=== PATIENT | female | born 1955 | race Caucasian/White ===

== ENCOUNTER → 2017-10-15 | Outpatient (CLI) | payer OTHER | LOC: FIMAGING 09:07 | PROVIDERS: ATTEND Physician Assistant | DX: Z12.31 Encounter for screening mammogram for malignant neoplasm of breast (principal) ==

== ENCOUNTER → 2017-11-04 | Outpatient (CLI) | payer OTHER | LOC: FIMAGING 15:51 | PROVIDERS: ATTEND Physician Assistant | DX: R93.8 Abnormal findings on diagnostic imaging of other specified body structures (principal); N88.8 Other specified noninflammatory disorders of cervix uteri ==

== ENCOUNTER → 2018-02-17 | Outpatient (CLI) | payer OTHER | LOC: FIMAGING 09:05 | PROVIDERS: ATTEND Physician Assistant | DX: R68.89 Other general symptoms and signs (principal) ==

== ENCOUNTER 2018-05-25 05:58 | Day surgery (SDC) | payer OTHER ==
[2018-05-25] MEDS ORDERED: LIDOCAINE 1% 2 ML INJ ID PRN (06:14)
--- NOTE | 2018-05-25 06:33 | PDGENHP ---
History and Physical - Chief Complaint Thickened endometrium - History of Present Illness Jessie is here for preop visit today. [facility] with endo sampling scheduled for . She was referred to me by her PCP regarding abnormal pelvic US with thickened cyst endometrial stripe at 5mm. She had not (and still hasn't) had any post-menopausal bleeding, but has been having new sx of lower abdominal cramping/bloating which prompted the US. She was not able to tolerate an endometrial biopsy in the office with her prior providers, despite sedation meds. She declines to attempt that again the office - recommended direct visualization and biopsy. Not on HRT. She did have a HSC in 2001 due to perimenopausal DUB which was benign. She's concerned due to family h/o CA (mom lymphoma, Dad colon). History Information - Allergies/Home Medication List Allergies/Adverse Reactions: amoxicillin [Amoxicillin] Allergy (Verified 05/22/18 16:05) Rash Home Medications: Advair 100/50 (RX) 09/18/13 [Last Taken Unknown] Ambien 5MG (RX) 09/18/13 [Last Taken Unknown] Proventil 09/18/13 [Last Taken Unknown] Temazepam 05/22/18 [Last Taken Unknown] traZODone 05/22/18 [Last Taken Unknown] I have personally reviewed and updated: family history, medical history, social history, surgical history Past Medical History: Asthma, anxiety, insomnia, HTN, mild urinary incontinence , migraines - Surgical History Additional surgical history: HSC 2001, Left thumb 2009 - Family History Additional family history: mom non-hodgkins lymphoma, dad colorectal Ca - Social History Smoking Status: Former smoker Review of Systems Review of Systems: ROS: 10pt was reviewed & negative except for what was stated in HPI & below Physical Exam Physical Exam: Constitutional: no apparent distress, appears nourished, not in pain Eyes: PERRL, anicteric sclera Ears, Nose, Mouth, Throat: moist mucous membranes Cardiovascular: No edema Respiratory: No respiratory distress Psychiatric: interacting appropriately, not anxious Lab Data & Imaging Review Imaging Review: Most recent pelvic US in our clinic: 05/01/18 Uterus is herogenous. Anterior small cervical fibroid seen 5 x 5mm. Nabothian cyst seen. Endometrial stripe is 5.4mm with tiny cystic areas. There is trace FF within the endometrial canal. Ovaries WNL. Assessment & Plan Assessment: Preop: Diagnostic hysteroscopy, endometrial sampling - Routine preop orders. - No need for abx or any preop medications. - Home from PACU. ANTONIA
[2018-05-25] MEDS: LR 1,000 ML IV ONE ×2 (06:36→08:26)
[2018-05-25] MEDS ORDERED: MIDAZOLAM 2 MG/2 ML VIAL IVP ONE (06:51)
--- NOTE | 2018-05-25 07:06 | PDANEPAE ---
ANE Past Medical History - Cardiovascular History Hx Hypertension: No Hx Arrhythmias: No Hx Chest Pain: No Hx Coronary Artery / Peripheral Vascular Disease: No Hx CHF / Valvular Disease: No Hx Palpitations: No Cardiovascular History Comment: anxiety causes HTN - Pulmonary History Hx COPD: No Hx Asthma/Reactive Airway Disease: Yes Hx Recent Upper Respiratory Infection: No Hx Oxygen in Use at Home: No Hx Sleep Apnea: No Sleep Apnea Screening Result - Last Documented: Negative Pulmonary History Comment: enviromental contaminent. allergies trigger asthma - Neurologic History Hx Cerebrovascular Accident: No Hx Seizures: No Hx Dementia: No - Endocrine History Hx Diabetes: No - Renal History Hx Renal Disorders: No - Liver History Hx Hepatic Disorders: No - Neurological & Psychiatric Hx Hx Neurological and Psychiatric Disorders: Yes Neurological / Psychiatric History Comment: raynauds, lumbar issues cause n/t. 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 endometriosis - Chronic Pain History Chronic Pain: No - Surgical History Prior Surgeries: none ANE Review of Systems Review of Systems: - Exercise capacity METS (RN): 4 METS ANE Patient History - Allergies Allergies/Adverse Reactions: amoxicillin [Amoxicillin] Allergy (Verified 05/22/18 16:05) Rash - Home Medications Home Medications: Advair 100/50 (RX) 09/18/13 [Last Taken Unknown] Ambien 5MG (RX) 09/18/13 [Last Taken Unknown] Proventil 09/18/13 [Last Taken Unknown] Temazepam 05/22/18 [Last Taken Unknown] traZODone 05/22/18 [Last Taken Unknown] - NPO status NPO Since - Liquids (Date): 05/24/18 NPO Since - Liquids (Time): 23:45 NPO Since - Solids (Date): 05/24/18 NPO Since - Solids (Time): 23:45 - Smoking Hx Smoking Status: Former smoker - Family Anes Hx Family Hx Anesthesia Complications: mother nausea ANE Labs/Vital Signs - Vital Signs Height: 165.1 cm Weight: 95.254 kg ANE Physical Exam - Airway Neck exam: FROM Mallampati Score: Class 2 Mouth exam: normal dental/mouth exam - Pulmonary Pulmonary: clear to auscultation - Cardiovascular Cardiovascular: regular rate and rhythym - ASA Status ASA Status: II ANE Anesthesia Plan Anesthesia Plan: GA w LMA
[2018-05-25] MEDS ORDERED: PROPOFOL 200 MG/20 ML VIAL ONE (07:09)
[2018-05-25] MEDS ORDERED: fentaNYL 100 MCG/2 ML INJ ONE (07:09)
[2018-05-25] MEDS ORDERED: LIDOCAINE 2% 100 MG/5 ML SYR ONE (07:11)
[2018-05-25] MEDS ORDERED: DEXAMETHASONE 4 MG/ML VIAL ONE (07:16)
[2018-05-25] MEDS ORDERED: METOCLOPRAMIDE 10 MG/2 ML VIAL ONE (07:17)
[2018-05-25] MEDS ORDERED: ONDANSETRON 4 MG/2 ML VIAL ONE (07:17)
[2018-05-25] MEDS ORDERED: BUPIVACAINE 0.25% 30 ML SDV ONE (07:24)
[2018-05-25] MEDS ORDERED: EPINEPHrine 1 MG/ML INJ ONE (07:24)
[2018-05-25] MEDS ORDERED: KETOROLAC 30 MG/1 ML SDV ONE (07:35)
[2018-05-25] MEDS ORDERED: LR 500 ML IV PRN (07:46)
[2018-05-25] MEDS ORDERED: ONDANSETRON 4 MG/2 ML VIAL IVP PRN (07:46)
[2018-05-25] MEDS ORDERED: fentaNYL 100 MCG/2 ML INJ IVP PRN (07:46)
[2018-05-25] MEDS ORDERED: NALOXONE HCL 0.4 MG/ML INJ IVP PRN (07:46)
[2018-05-25] MEDS ORDERED: DIAZEPAM 5 MG/ML 1 ML SYR IVP PRN (07:46)
[2018-05-25] MEDS ORDERED: LABETALOL HCL 5 MG/ML 20 ML MDV IVP PRN (07:46)
[2018-05-25] MEDS ORDERED: HYDROmorphONE/DILAUDID 2 MG/ML INJ IVP PRN (07:46)
[2018-05-25] MEDS ORDERED: PROMETHAZINE HCL 25 MG/ML INJ IVP PRN (07:46)
[2018-05-25] MEDS ORDERED: ALBUTEROL 3 ML DEYVIAL IH PRN (07:46)
[2018-05-25] MEDS ORDERED: HYDROCODONE/APAP 5/325 TAB PO PRN (07:46)
[2018-05-25] MEDS ORDERED: MEPERIDINE 25 MG/0.5 ML AMP IVP PRN (07:46)
[2018-05-25] MEDS ORDERED: oxyCODONE IR 5 MG TAB PO PRN (07:46)
--- NOTE | 2018-05-25 08:38 | SUROPNOTE ---
LALITH[facility] Operative Report - Surgery Date of Operation: 05/25/18 Surgeon: Rayo Nunes Safety Counselor: None Anesthesia: GET(General Endotracheal), LMA Pre-op Diagnosis: Thickened endometrial lining Post-op Diagnosis: Same, intrauterine adhesions Procedure: Diagnostic hysteroscopy Findings: Stenotic cervix, scarred irregular cavity Inf/Abcess present in the surg proc area at time of surgery?: No EBL: Minimal (10cc) Total fluids administered: Deficit 1210 Complications: None Specimen(s): Endometrial sampling Technique:
[2018-05-25 09:20] VITALS: BP 116/68
--- NOTE | 2018-05-25 11:55 | POSTANESTH ---
Post Anesthetic Evaluation Cardiovascular Status: Normal, Stable Respiratory Status: Normal, Stable Level of Consciousness/Mental Status: Can Participate in Eval Pain Control: Adequate, Prn Tx Ordered Nausea/Vomiting Control: Adequate, Prn Tx Ordered Complications Possibly Related to Anesthesia: None Noted
== END 2018-05-25 09:42 | disposition home or self-care (01) ==
LOC: FSGY 05:58
PROVIDERS: ATTEND Obstetrics & Gynecology
PROC: 0UDB8ZX Extraction of Endometrium, Via Natural or Artificial Opening Endoscopic, Diagnostic (ICD-10-PCS; principal; 2018-05-25 07:15)
DX: N84.0 Polyp of corpus uteri (principal); F41.8 Other specified anxiety disorders; J45.909 Unspecified asthma, uncomplicated; I10 Essential (primary) hypertension
CPT/HCPCS: 58558; C1782; J0171; J1100; J1885; J2001; J2250; J2405; J2704; J2765; J3010

== ENCOUNTER 2018-09-30 05:28 | Observation (INO) | payer OTHER ==
--- NOTE | 2018-09-28 07:53 | PDGENHP ---
History and Physical History and Physical: Lisbeth Addison [id number] 1955 09/23/2018 09:49 AM Page: 05/12 . ... Patient: Lisbeth Addison Date of : 1955 Date: 09/23/2018 9:49 AM Visit Type: Pre Op Visit This 63 year old female presents for Pre-Op. History of Present Illness: 1. Pre-Op Patient presents to clinic today for a preoperative visit for Right Total Hip Arthroplasty scheduled on 09/30/[address] Mariscal. Patient has had significant history of pain and discomfort related to osteoarthritis (degenerative joint disease) and has failed conservative management in the form of over the counter analgesics (such as NSAIDs and Tylenol), at least 3 months of modified activity/ therapy and exercises (such as physical therapy, and PT created home exercises) , and supplements (such as glucosamine and chondroitin). This arthritic pain has affected patient's activities of daily living, and has affected sleep, walking/weight bearing, and other desired activities/hobbies. Patient has also had intermittent episodes of swelling and instability due to the pain, which pain has become constantly dull/achy, with intermittent sharp painful episodes. Pain and discomfort have caused patient to occasionally use ambulatory stabilizing devices (such as crutches, cane, walker, or braces). Patient has also been trying healthy diet in order to optimize weight. Pain levels vary depending on activity from 1-10 out of 10 on a pain scale. This pain/discomfort has been occurring for well over 1 year, and conservative management has no longer given sufficient relief of symptoms. Radiographs previously taken of joint clearly confirm the presence of degenerative joint disease (such as joint space narrowing, subchondral sclerosis, and peripheral osteophyte formation). Patient feels they have exhausted non-surgical treatment for their pain and discomfort, and has decided a more permanent surgical option would be best for their current situation. Patient has been informed of the possible risks and complications of the procedure, and desires to continue with the surgery. Patient has/will participate in some form of joint instruction prior to surgery in order to help optimize their recovery. Patient will be cared for by family/friends after discharged home. ALLERGIES: AMOXICILLIN. CURRENT MEDICATIONS: Albuterol, Advair, trazodone, temazepam, Ambien, aspirin, fish oil. PAST MEDICAL HISTORY: History of lumbar disk pathology from L4 through sacrum ( degenerative disk disease). PREVIOUS SURGERY: Hysteroscopy with polyp removal, left thumb surgery. SOCIAL HISTORY: Nonsmoker currently. History of being a previous smoker and quit many years ago. Alcohol use is 10 drinks per week. No use of recreational drugs. PROBLEM LIST: Problem Description Onset Date Chronic Clinical Status Notes Lumbar radiculitis 06/05/2015 Bilateral leg weakness 06/05/2015 Medications (active prior to today) Medication Name Sig Description Start Date Stop Date Refilled Rx Elsewhere Advair Diskus inhale 1 puff by inhalation route 2 times every day in the morning and evening approximately 12 hours apart // Y Proventil HFA inhale 2 puff by inhalation route every 4 - 6 hours as needed // Y Singulair // Y Clarinex take 10 milliliter by oral route every day // Y simvastatin take 1 tablet by oral route every day in the evening // Y trazodone 50 mg tablet take 2 by Oral route every evening // Y temazepam 7.5 mg capsule take 1 capsule by oral route every day at bedtime as needed // Y Allergies: Ingredient Reaction Medication Name Intolerance Comment ARTICHOKE N AMOXICILLIN Rash (mild) N ERYTHROMYCIN BASE N SULFA (SULFONAMIDE ANTIBIOTICS) N Review of Systems System Neg/Pos Details Constitutional Negative Fatigue, Fever and Night sweats. Eyes Negative Vision loss. Respiratory Negative Cough and Dyspnea. Cardio Negative Chest pain, Cyanosis and Irregular heartbeat/palpitations. Neuro Negative Difficulty walking, Dizziness and Headache. Psych Negative Anxiety and Depression. Physical Exam Exam Findings Details Constitutional Normal No acute distress. Well developed. Respiratory Normal Inspection - Normal. Auscultation - Normal. Effort - Normal. Cardiovascular Normal Heart rate - Regular rate. Rhythm - Regular. Vascular Comments Distal vasculature of extremity is intact Musculoskeletal Comments Extremity: Right Hip Discomfort to ROM. No open wounds or signs of infection Neurological Comments sensation to light touch intact Psychiatric Normal Orientation - Oriented to time, place, person & situation. No agitation. Not anxious. Appropriate mood and affect. Assessment/Plan # Detail Type Description 1. Assessment Encounter for other preprocedural examination (Z01.818). Patient Plan The patient and I had a lengthy and detailed discussion today regarding their upcoming surgery, the surgical procedure in general, and the risks and potential complications of the surgery (including but not limited to blood loss, blood vessel injury, nerve injury, implant failure, continued pain, DVT/PE, infection, and ). We also discussed the post-operative recovery period including goals for PT and importance of home exercise. After reviewing patient's medical history, and answering all patient's concerns and questions, we will plan to proceed forward with surgery. Post-op physical therapy has been discussed and ordered, and the general rehabilitation process was discussed in detail with the patient. X-rays needed during surgery have been completed, and pre-op labs will be complete for pre-surgical screening, which will be reviewed prior to hospital admission. Post-operative medications for DVT prophylaxis, pain, and possible anti- inflammation have been discussed with patient and will be properly ordered. Patient instructed to take these medication only after discharged home after surgery. Patient instructed that Narcotic pain medication will be prescribed for use after surgery. I explained to patient we will only temporarily manage post- operative pain with narcotic pain medications and that there are side effects and addictive potential with use of such drugs. Constipation prevention and management was described in detail with patient. Patient instructed to stop all aspirin/blood thinners, NSAIDS, and certain supplements 10 days before surgery. Patient instructed to obtain a walker for ambulation, which will be needed for about 2 weeks following surgery. I described post-operative wound care in detail, including the Bandages/ dressing which will be applied after surgery, and removed when deemed necessary. I discussed with the patient the implant device we plan to use, including material, design, and known longevity of such an implant. Models were used for visual understanding as well. Patient education material and handouts were given to patient to help solidify proper understanding of their upcoming surgery and recovery. Consent for surgery has been reviewed and signed by patient, and patient understands the potential risks and benefits of procedure. A pre-op functional assessment was completed by patient today. Patient functional assessment will be assessed in future follow-up appointments as well. The patient's questions/concerns have all been answered at this appointment. Patient seen by Damion Rodrigues PA-C. Attending Physician Dr. Sina Mariscal MD 2. Assessment Unilateral primary osteoarthritis, right hip (M16.11). Provider: Damion Rodrigues 09/23/2018 9:50 AM
[2018-09-30] MEDS ORDERED: ACETAMINOPHEN 325 MG TAB PO ONE (05:47)
[2018-09-30] MEDS ORDERED: FAMOTIDINE 20 MG TAB PO ONE (05:47)
[2018-09-30] MEDS ORDERED: ceFAZolin 2 GM/DEXTROSE 100 ML IV ONE (05:47)
[2018-09-30] MEDS ORDERED: DEXAMETHASONE 4 MG/ML VIAL IVP ONE (05:47)
[2018-09-30] MEDS ORDERED: LIDOCAINE 1% 2 ML INJ ID PRN (05:48)
[2018-09-30] MEDS ORDERED: LR 1,000 ML IV ONE (05:48)
[2018-09-30] MEDS ORDERED: ROPIVACAINE 0.2% 80 MG, EPINEPHrine 0.2 MG, KETOROLAC TROMETHAMINE 30 MG, morphINE 10 M... IU ONE (06:00)
[2018-09-30] MEDS ORDERED: TRANEXAMIC ACID 1,000 MG in NS 100 ML IV ONE (06:00)
--- NOTE | 2018-09-30 06:52 | PDANEPAE ---
ANE Past Medical History - Cardiovascular History Hx Hypertension: No Hx Arrhythmias: No Hx Chest Pain: No Hx Coronary Artery / Peripheral Vascular Disease: No Hx CHF / Valvular Disease: No Hx Palpitations: No Cardiovascular History Comment: anxiety causes HTN - Pulmonary History Hx COPD: No Hx Asthma/Reactive Airway Disease: Yes Hx Recent Upper Respiratory Infection: No Hx Oxygen in Use at Home: No Hx Sleep Apnea: No Sleep Apnea Screening Result - Last Documented: Positive Pulmonary History Comment: enviromental contaminent. allergies trigger asthma - Neurologic History Hx Cerebrovascular Accident: No Hx Seizures: No Hx Dementia: No - Endocrine History Hx Diabetes: No - Renal History Hx Renal Disorders: No - Liver History Hx Hepatic Disorders: No - Neurological & Psychiatric Hx Hx Neurological and Psychiatric Disorders: Yes Neurological / Psychiatric History Comment: lumbar issues cause n/t. 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 endometriosis - Chronic Pain History Chronic Pain: Yes - Surgical History Prior Surgeries: none ANE Review of Systems Review of Systems: - Exercise capacity METS (RN): 5 METS ANE Patient History - Allergies Allergies/Adverse Reactions: amoxicillin [Amoxicillin] Allergy (Verified 09/28/18 11:45) Rash on legs epinephrine Allergy (Verified 09/30/18 06:03) gets dysrhythmia but ok if needed - Home Medications Home Medications: Albuterol Sulfate [Proair Hfa] 1 - 2 puffs IH TID PRN 09/17/18 [Last Taken 09/30 04:00] Aspirin [Aspirin 325 mg (*)] 325 mg PO Q2D@0900 09/17/18 [Last Taken 09/22/18] Calcium Carbonate [Tums 500MG (*)] 500 - 1,000 mg PO BID PRN 09/17/18 [Last Taken 09/22/18] Fluticasone Nasal [Flonase Nasal [place] (RX)] 1 - 2 sprays NASAL HS 09/17/18 [ Last Taken 09/30/18] Fluticasone/Salmeter 100/50Mcg [Advair 100/50 (*)] 1 puffs IH BID 09/17/18 [ Last Taken 09/30/18] Fluticasone/Salmeter 250/50Mcg [Advair 250/50 (*)] 1 puffs IH BID PRN 09/17/18 [ Last Taken 09/30/18] Herbals/Supplements -Info Only 1 ea PO DAILY 09/17/18 [Last Taken 09/22/18] Multivitamins [Multivitamin (*)] 1 each PO MWF@0900 09/17/18 [Last Taken ] Edison-3 Fatty Acids [Fish Oil 1000 mg (*)] 1,000 mg PO Q2D@0900 09/17/18 [Last Taken 09/22/18] Temazepam [Restoril 15 MG (*)] 15 mg PO HSPRN PRN 09/17/18 [Last Taken 09/29/18 00:59] Zolpidem Tartrate [Ambien 5MG (*)] 2.5 - 5 mg PO HS PRN 09/17/18 [Last Taken 01:00] traZODone [traZODONE 50MG (*)] 50 mg PO HS 09/17/18 [Last Taken 09/29/18 20:00] Zantac 09/30/18 [Last Taken 09/30/18] - NPO status NPO Since - Liquids (Date): 09/30/18 NPO Since - Liquids (Time): 06:00 NPO Since - Solids (Date): 09/29/18 NPO Since - Solids (Time): 23:50 - Smoking Hx Smoking Status: Former smoker - Family Anes Hx Family Hx Anesthesia Complications: mother nausea ANE Labs/Vital Signs - Vital Signs Blood Pressure: 149/94 Heart Rate: 73 Respiratory Rate: 22 O2 Sat (%): 93 Height: 165.74 cm Weight: 99.79 kg ANE Physical Exam - Airway Neck exam: FROM Mallampati Score: Class 3 - Pulmonary Pulmonary: no respiratory distress - Cardiovascular Cardiovascular: regular rate and rhythym - ASA Status ASA Status: III ANE Anesthesia Plan Anesthesia Plan: general endotracheal anesthesia
[2018-09-30] MEDS ORDERED: MIDAZOLAM 2 MG/2 ML VIAL IVP ONE (06:54)
[2018-09-30] MEDS ORDERED: ceFAZolin 1 GM/5 ML SYR ONE (06:59)
--- NOTE | 2018-09-30 07:03 | PDHPUP ---
History & Physical Update H&P update statement: This history and physical update is based on an assessment of the patient which was completed after admission or registration (within 24 hours), but prior to the surgery/procedure. H&P update: H&P reviewed & patient examined, no change in patient's condition since H&P completed
[2018-09-30] MEDS ORDERED: PROPOFOL 200 MG/20 ML VIAL ONE (07:09)
[2018-09-30] MEDS ORDERED: RANITIDINE 50 MG/2 ML VIAL ONE (07:09)
[2018-09-30] MEDS ORDERED: METOCLOPRAMIDE 10 MG/2 ML VIAL ONE (07:09)
[2018-09-30] MEDS ORDERED: DEXAMETHASONE 4 MG/ML VIAL ONE (07:09)
[2018-09-30] MEDS ORDERED: ROCURONIUM 100 MG/10 ML VIAL ONE (07:09)
[2018-09-30] MEDS ORDERED: ONDANSETRON 4 MG/2 ML VIAL ONE (07:09)
[2018-09-30] MEDS ORDERED: LIDOCAINE 2% 100 MG/5 ML SYR ONE (07:10)
[2018-09-30] MEDS ORDERED: PHENYLEPHRINE HCL 100 MCG/ML SYR ONE (07:59)
[2018-09-30] MEDS ORDERED: NEOSTIGMINE METHYLSULFATE 10 MG/10 ML MDV ONE (08:06)
[2018-09-30] MEDS ORDERED: GLYCOPYRROLATE 0.2 MG/1 ML VIAL ONE ×2 (08:06)
[2018-09-30] MEDS ORDERED: DIAZEPAM 10 MG/2 ML SYR IVP PRN (08:58)
[2018-09-30] MEDS ORDERED: ALBUTEROL 3 ML DEYVIAL IH PRN (08:58)
[2018-09-30] MEDS ORDERED: NALOXONE HCL 0.4 MG/ML INJ IVP PRN ×2 (08:58)
[2018-09-30] MEDS ORDERED: HYDROmorphONE/DILAUDID 1 MG/ML INJ IVP PRN (08:58)
[2018-09-30] MEDS ORDERED: MEPERIDINE 25 MG/0.5 ML AMP IVP PRN (08:58)
[2018-09-30] MEDS ORDERED: ONDANSETRON 4 MG/2 ML VIAL IVP PRN ×2 (08:58→09:39)
[2018-09-30] MEDS ORDERED: fentaNYL 100 MCG/2 ML INJ IVP PRN (08:58)
[2018-09-30] MEDS ORDERED: CYCLOBENZAPRINE 10 MG TAB PO PRN (09:39)
[2018-09-30] MEDS ORDERED: PROMETHAZINE HCL 25 MG/ML INJ IVP PRN (09:39)
[2018-09-30] MEDS ORDERED: POLYETHYLENE GLYCOL 3350 17 GM PKT PO PRN (09:39)
[2018-09-30] MEDS ORDERED: METOCLOPRAMIDE 10 MG/2 ML VIAL IVP PRN (09:39)
[2018-09-30] MEDS ORDERED: diphenhydrAMINE 25 MG CAP PO PRN (09:39)
[2018-09-30] MEDS ORDERED: ONDANSETRON DISINTEGRATING 4 MG TAB PO PRN (09:39)
[2018-09-30] MEDS ORDERED: TEMAZEPAM 15 MG CAP PO PRN (09:39)
[2018-09-30] MEDS ORDERED: DIPHENOXYLATE/ATROPINE LOMOTIL 1 TAB PO PRN (09:39)
[2018-09-30] MEDS ORDERED: MAGNESIUM HYDROXIDE 30 ML UDCUP PO PRN (09:39)
[2018-09-30] MEDS ORDERED: LACTULOSE 20 GM/30 ML UDCUP PO PRN (09:39)
[2018-09-30] MEDS ORDERED: PROMETHAZINE HCL 25 MG SUPPR PR PRN (09:39)
[2018-09-30] MEDS ORDERED: BISACODYL 10 MG SUPP PR PRN (09:39)
--- NOTE | 2018-09-30 09:39 | POSTANESTH ---
Post Anesthetic Evaluation Cardiovascular Status: Similar to Pre-Op Cond Respiratory Status: Similar to Pre-op Cond. Level of Consciousness/Mental Status: Can Participate in Eval, Mildly Sleepy, Arousable Pain Control: Adequate, Prn Tx Ordered Nausea/Vomiting Control: Adequate, Prn Tx Ordered Complications Possibly Related to Anesthesia: None Noted
[2018-09-30] MEDS ORDERED: MEPERIDINE 25 MG/0.5 ML AMP ONE (09:43)
--- NOTE | 2018-09-30 09:55 | GOP ---
[f rep st] OPERATIVE REPORT DATE OF OPERATION: 09/30/2018 SURGEON: Sina Mariscal MD METAL GAUGE MAKER: Damion Rodrigues PA-C ANESTHESIA: General. PREOPERATIVE DIAGNOSIS: Osteoarthritis, right hip. POSTOPERATIVE DIAGNOSIS: Osteoarthritis, right hip. PROCEDURE PERFORMED: Right total hip arthroplasty. FINDINGS: DESCRIPTION OF PROCEDURE: The patient was taken to the operating room, administered general anesthes ia, placed in the left lateral decubitus position, had her right hip and lower extremity prepped and draped in normal sterile fashion. A posterolateral incision was made through dermal and subcutaneous tissues. Sharp and blunt dissection were performed down to level the IT band. This was split longi tudinally, extended into the gluteal fascia. The Charnley retractor was positioned. The hip was int ernally rotated. The piriformis was palpated. We subsequently tagged it with #2 Ethibond suture. T he posterior hip capsule and piriformis were then taken down as a unit. The posterior hip capsule wa s then tagged with #2 Ethibond suture. The hip was dislocated. Femoral neck cut was made about 0.5 cm above the lesser trochanter with last oscillating saw and use of the neck cutting guide. Head and neck segment were removed. Retractors were positioned around the acetabulum. The labral tissue was excised. The fatty tissue in the cotyloid notch was excised. The reaming started with a 46 and ext ended up to a size 52. A 52 trial cup was positioned. This fit nicely. We therefore removed the tr ial cup and replaced it with the real size 52 Trident 2 titanium cluster hole acetabular shell. We u sed the trial insert. Head and neck segment were then exposed. The box osteotome was used to remove bone from the greater trochanter. The starting reamer was placed down through the femoral canal. T he reaming commenced with a size 6 and extended up to a size 9. The broaching began with a size 7 an d extend up to a size 9. The size 9 fit nicely. A 0-degree neck length trial with a 0 neck length h ead was put in position. Trial reduction was performed. The hip was felt to be stable. Intraoperat kaila films showed excellent alignment. Trial implants were brought out. Thorough lavage was performe d. The real implants were opened. The cup was secured with a 6.5 mm low-profile hex screw measuring 30 mm in length. The Trident X3 10-degree polyethylene insert was impacted into position. The real Secur-Fit max 132-degree neck angle hip stem, size 9 was impacted into position. The trunnion was d ried. The ceramic C taper femoral head was impacted into position. A redislocation was performed wi th the real implants in position. The hip was put through range of motion and felt to be stable. Th orough lavage performed with normal saline. The posterior hip capsule and piriformis tendon were rep aired through drill holes in the greater trochanter. This was performed with a #2 Ethibond suture. The IT band was closed in 3 different locations with a 0 Vicryl suture and then a running #2 V-Loc sparrow ture. The subcutaneous tissues were closed with 2-0 V-Loc suture followed by closure of the dermis w ith dena. Dermabond was utilized. Sterile compression was applied. The patient had an abduction pillow placed. She tolerated the procedure well, was transferred back to recovery in stable conditi on. No operative complications. COMPLICATIONS: None. IMPLANTS: VALOREM. /[id number]/MODL
[2018-09-30] MEDS ORDERED: LR 1,000 ML IV SCH (10:00)
--- NOTE | 2018-09-30 10:29 | PDMN ---
Medical Necessity [place] [facility] [place]: OP: R SALVADOR
[2018-09-30] MEDS ORDERED: CALCIUM CARBONATE 500 MG CHEWABLE TAB PO PRN (11:46)
[2018-09-30] MEDS: KETOROLAC 15 MG/1 ML SDV IVP SCH ×3 (11:58→23:38)
[2018-09-30] MEDS: oxyCODONE IR 5 MG TAB PO PRN ×2 (12:00→20:53)
[2018-09-30] MEDS: ceFAZolin 2 GM/DEXTROSE 100 ML IV SCH ×2 (13:56→22:01)
[2018-09-30] MEDS: ACETAMINOPHEN 325 MG TAB PO SCH ×2 (15:34→22:01)
[2018-09-30] MEDS: FLUTICASONE/SALMETER 250/50MCG DISKUS IH PRN (18:40)
[2018-09-30] MEDS: ALBUTEROL 60 PUFFS/8 GM MDI IH PRN ×2 (18:41→21:09)
[2018-09-30] MEDS: SENNOSIDES/DOCUSATE SODIUM TAB PO SCH (20:53)
[2018-09-30] MEDS: ASPIRIN 325 MG TAB PO SCH (20:53)
[2018-09-30] MEDS: FAMOTIDINE 20 MG TAB PO SCH (20:53)
[2018-09-30] MEDS ORDERED: FLUTICASONE/SALMETER 100/50MCG DISKUS IH SCH (21:00)
[2018-09-30] MEDS ORDERED: traZODone 50 MG TAB PO SCH (21:00)
[2018-09-30] MEDS ORDERED: FLUTICASONE NASAL 120 SPRAYS/16 GM MDI EACHNARE SCH (21:00)
[2018-10-01] MEDS: ACETAMINOPHEN 325 MG TAB PO SCH ×2 (04:01→09:24)
[2018-10-01] MEDS: oxyCODONE IR 5 MG TAB PO PRN ×3 (04:02→12:40)
[2018-10-01] MEDS: KETOROLAC 15 MG/1 ML SDV IVP SCH (05:45)
--- NOTE | 2018-10-01 06:53 | SOAPPROG ---
SOAP Progress Note Assessment/Plan: Assessment: POD #1 s/p Right Total Hip Arthroplasty Plan: Continue PT/OT today with WBAT RLU with walker assistance Aspirin, SCD, and mobilize for DVT prophylaxis Continue current pain medication. Pain under good control Keep bandage intact DISCHARGE: will be discharged today 10/01/18 FOLLOWUP: will be see in 2 weeks at clinic for post-op appointment 10/01/18 06:49 Subjective: She states she is doing well. Didnt get too much sleep last night. She is excited to go home and sleep in her bed. Moderate thigh pain overnight, but improving. Denies any CP, SOB, N/V. Objective: Vital Signs Temp Pulse Resp BP Pulse Ox 36.3 C 61 18 118/57 L 97 10/01/18 03:58 10/01/18 03:58 10/01/18 03:58 10/01/18 03:58 10/01/18 03:58 Laboratory Results 10/01/18 04:27 10/01/18 04:27 09/30/18 10/01/18 10/02/18 05:59 05:59 05:59 Intake Total 5028 Output Total 1900 300 Balance 3128 -300 PHYSICAL EXAM RLU Bandage intact, clean and dry 5/5 DF/PF. Moderate thigh weakness Distal Neurovasculature intact - Pending Discharge Pending Discharge Within 24 Hours: Yes Pending Discharge Date: 10/01/18 Pending Discharge Time: 13:00 ICD10 Worksheet Patient Problems: Problems Problem Status Onset Thickened endometrium Acute
--- NOTE | 2018-10-01 06:58 | PDDCSUM ---
Discharge Summary Discharge Summary: DISCHARGE SUMMARY Admission Date: 09/30/18 Discharge Date: 10/01/18 Admission Diagnosis: Right Hip Primary Osteoarthritis SURGICAL PROCEDURE: Right Total Hip Arthroplasty SURGEON: Dr. Sina Mariscal MD HOSPITAL COURSE Patient was admitted to the surgical floor following surgery. It was deemed medically necessary for admission due to her known respiratory disease, pain control. She tolerated surgery well and was given IV fluids until PO fluids and food were tolerated. She met with in house PT and OT for proper rehab and home care teaching. Pain was well controlled with oral medications. DVT prophylaxis was given in the form of Aspirin, SCDs, and mobilization. Her dressing was checked daily and properly taken care of as needed. Following her course at the hospital she was deemed fit for discharge home under the care of her . FOLLOW-UP She will followup at [facility] in 10-14 days for further post-operative evaluation and radiographs. Damion Rodrigues PA-C for attending Dr. Mariscal
[2018-10-01] MEDS: ALBUTEROL 60 PUFFS/8 GM MDI IH PRN (07:15)
[2018-10-01] MEDS: FLUTICASONE/SALMETER 250/50MCG DISKUS IH PRN (07:16)
[2018-10-01 07:21] VITALS: BP 100/52
[2018-10-01] MEDS: ASPIRIN 325 MG TAB PO SCH (07:55)
[2018-10-01] MEDS: SENNOSIDES/DOCUSATE SODIUM TAB PO SCH (07:55)
[2018-10-01] MEDS: FAMOTIDINE 20 MG TAB PO SCH (07:56)
--- NOTE | 2018-10-01 11:14 | ASMTLACE ---
JOHNIEE Length of stay for Answers: 1 day current admission Acuity / Level of Answers: Yes Care: Did the patient have an inpatient admission? Comorbidities - select Answers: Opioid dependence all that apply / Chronic pain Other Notes: HTN # of Emergency department Answers: 0 visits in the last 6 months Social determinants Answers: Mental health diagnosis (anxiety, depression, pers onality disorders, etc.) Score: 12 Date Signed: 10/01/2018 11:13 AM Electronically Signed By:KELLY Zhu
--- NOTE | 2018-10-01 11:15 | ASMTCMCOM ---
CM Note CM Note Notes: Pt had planned OA of hip. Pt resides with spouse. PT rec home/outpatient. Pt already has an appointment with her [facility] PCP in October. Pt medically stable for d/c, no CM d/c needs identified. Date Signed: 10/01/2018 11:15 AM Electronically Signed By:KELLY Zhu
== END 2018-10-01 13:02 | disposition home or self-care (01) ==
LOC: INTOOBSV 05:28 → F3N 05:28
PROVIDERS: ADMIT Orthopaedic Surgery Sports Medicine; ATTEND Orthopaedic Surgery Sports Medicine
PROC: 0SR904Z Replacement of Right Hip Joint with Ceramic on Polyethylene Synthetic Substitute, Open Approach (ICD-10-PCS; principal; 2018-09-30 07:15)
DX: M16.11 Unilateral primary osteoarthritis, right hip (principal)
CPT/HCPCS: 27130; 72170; 97110; 97116; 97161; 97165; 97530; 97535; G0378; C1713; J0171; J0690; J1100; J1885; J2001; J2175; J2250; J2270; J2370; J2405; J2704; J2765; J2780; J2795

== ENCOUNTER 2018-10-05 08:42 | Emergency (ER) | payer OTHER ==
[2018-10-05] MEDS ORDERED: NS 1,000 ML IV ONE (09:12)
--- NOTE | 2018-10-05 09:16 | EDPHY ---
H & P Time Seen by Provider: 10/05/18 09:00 HPI/ROS: CHIEF COMPLAINT: Concerned about sepsis HISTORY OF PRESENT ILLNESS: Patient is a 63-year-old female who presents emergency department status post hip replacement surgery on 09/[address] Mariscal. Patient had been doing well since discharge. On Friday the patient developed a "blue lip." Patient took Oxy code own and Flexeril at the same time. She felt facial numbness and was concerned. Those symptoms resolved. After consultation with Dr. Mariscal office she was told to decrease her medication intake. The patient has had episodes of hot flashes both Friday and Friday evening. On Friday evening patient took her pulse during hot flash. It was 88. This caused her concern because her normal heart rate is in the 60s. Patient noticed some discharge from her right hip dressing this morning. This did not appear to be pus. The patient states "my hip is actually doing better." The patient is able to range her hip without discomfort. The patient has a history of asthma. She has been using incentive spirometer. She has no recent cough or shortness of breath. REVIEW OF SYSTEMS: 10 systems were reveiwed and are negative with the exception of the elements mentioned in the history of present illness. Past Medical/Surgical History: Includes asthma, restless leg syndrome, back pain Past surgical history: Right hip replacement, thumb surgery Smoking Status: Former smoker Physical Exam: Vitals noted. 36.8, 157/96, 111, 18, 88% on room air GENERAL: Well-appearing, in no acute distress, alert. HEENT: Eyes normal to inspection, normal pharynx, no signs of dehydration. NECK: Normal, supple. RESPIRATORY: Clear to auscultation bilaterally, no rales, rhonchi or wheezing. CVS: Regular rate and rhythm, no rubs, murmurs, or gallops. ABDOMEN: Soft, nontender, nondistended, no organomegaly. BACK: Normal to inspection, no CVA tenderness. Hip: The patient's right hip dressing is intact. There is no significant drainage. There is no surrounding erythema. There is old bruising. Patient has range of motion of her right hip without discomfort. SKIN: Normal color, no rash, warm, dry. No pallor. EXTREMITIES: No pedal edema, no calf tenderness, no Homans sign or cords, no joint swelling. NEURO/PSYCH: Alert and oriented, normal mood and affect, normal motor sensory exam. No obvious cranial nerve deficit. Constitutional: Initial Vital Signs Temperature (C) 36.8 C 10/05/18 08:43 Heart Rate 111 H 10/05/18 08:43 Respiratory Rate 18 10/05/18 08:43 Blood Pressure 157/96 H 10/05/18 08:43 O2 Sat (%) 88 L 10/05/18 08:43 O2 Delivery Mode Room Air Allergies/Adverse Reactions: amoxicillin [Amoxicillin] Allergy (Verified 10/05/18 08:47) Rash on legs epinephrine Allergy (Verified 10/05/18 08:47) gets dysrhythmia but ok if needed Home Medications: Medication Instructions Recorded Aspirin [Aspirin 325 mg (*)] 325 mg PO Q2D@0909/17/18 Fluticasone/Salmeter 100/50Mcg 1 puffs IH BID 09/17/18 [Advair 100/50 (*)] Herbals/Supplements -Info Only 1 ea PO DAILY 09/17/18 Multivitamins [Multivitamin (*)] 1 each PO MWF@89909/17/18 Temazepam [Restoril 15 MG (*)] 15 mg PO HSPRN PRN 09/17/18 Zolpidem Tartrate [Ambien 5MG (*)] 2.5 - 5 mg PO HS PRN 09/17/18 Ranitidine HCl [Zantac] 150 mg PO DAILY 09/30/18 Acetaminophen [Tylenol 325mg (*)] 650 mg PO Q6H tab 10/01/18 Cyclobenzaprine [Flexeril 10 MG 10 mg PO Q8HRS PRN #10 tab 10/01/18 (*)] oxyCODONE IR [Oxycodone Ir (*)] 5 - 10 mg PO Q3HRS PRN #40 tab 10/01/18 Medical Decision Making - Diagnostics Imaging Results: Imaging Impressions Chest X-Ray 10/05/18 09:12 Impression: No evidence for acute cardiopulmonary abnormality. ED Course/Re-evaluation: In the emergency department I discussed possible etiologies with the patient. I answered all her questions. IV was placed. Laboratory studies, EKG, and chest x-ray were ordered. EKG shows normal sinus rhythm, normal rate, normal axis, normal intervals. The patient has Q-waves in 3 and AVF. There are no ST or T-wave abnormalities. Lactic acid is 1.9. White count is mildly elevated at 10. Hematocrit is slightly low at 36. Chemistry panel is unremarkable. Bilirubin normal. Chest x-ray: No acute disease noted I rechecked the patient. She was doing well. She had normal vital signs. I with dressing from her right hip wound. This appeared to be healing well. The wound was clean dry and intact. No erythema or discharge. I discussed the findings with the patient. She will follow up with orthopedic physician this week. She was given warnings prior to leaving. I do not feel the patient appears septic or toxic. I feel the patient is safe for discharge. Differential Diagnosis: My differential includes but is not limited to pneumonia, atelectasis, asthma exacerbation, bacteremia, sepsis, septic hip, urinary tract infection - Data Points Laboratory Results: Laboratory Results 10/05/18 09:00 10/05/18 09:00 10/05/18 10/05/18 10/05/18 10:25 09:00 09:00 WBC RBC Hgb Hct MCV MCH MCHC RDW Plt Count MPV Neut % (Auto) Lymph % (Auto) [place] % (Auto) Eos % (Auto) Baso % (Auto) Nucleat RBC Rel Count Absolute Neuts (auto) Absolute Lymphs (auto) Absolute Monos (auto) Absolute Eos (auto) Absolute Basos (auto) Absolute Nucleated RBC Immature Gran % Immature Gran # VBG Lactic Acid 1.9 mmol/L mmol/L (0.7-2.1) Sodium 136 mEq/L mEq/L (135-145) Potassium 4.5 mEq/L mEq/L (3.5-5.2) Chloride 101 mEq/L mEq/L (97-110) Carbon Dioxide 23 mEq/l mEq/l (22-31) Anion Gap 12 mEq/L mEq/L (6-14) BUN 23 mg/dL mg/dL (7-23) Creatinine 0.9 mg/dL mg/dL (0.6-1.0) Estimated GFR > 60 Glucose 134 mg/dL H mg/dL (70-100) Calcium 9.9 mg/dL mg/dL (8.5-10.4) Total Bilirubin 0.4 mg/dL mg/dL (0.1-1.4) Urine Color YELLOW Urine Appearance CLEAR Urine pH 5.0 (5.0-7.5) Ur Specific [place] 1.016 (1.002-1.030) Urine Protein NEGATIVE (NEGATIVE) Urine Ketones NEGATIVE (NEGATIVE) Urine Blood NEGATIVE (NEGATIVE) Urine Nitrate NEGATIVE (NEGATIVE) Urine Bilirubin NEGATIVE (NEGATIVE) Urine Urobilinogen NEGATIVE EU EU (0.2-1.0) Ur Leukocyte Esterase NEGATIVE (NEGATIVE) Urine Glucose NEGATIVE (NEGATIVE) 10/05/18 09:00 WBC 10.07 10^3/uL H 10^3/uL (3.80-9.50) RBC 3.95 10^6/uL L 10^6/uL (4.18-5.33) Hgb 12.0 g/dL L g/dL (12.6-16.3) Hct 36.3 % L % (38.0-47.0) MCV 91.9 fL fL (81.5-99.8) MCH 30.4 pg pg (27.9-34.1) MCHC 33.1 g/dL g/dL (32.4-36.7) RDW 13.2 % % (11.5-15.2) Plt Count 325 10^3/uL 10^3/uL (150-400) MPV 10.7 fL fL (8.7-11.7) Neut % (Auto) 63.2 % % (39.3-74.2) Lymph % (Auto) 26.5 % % (15.0-45.0) [place] % (Auto) 5.2 % % (4.5-13.0) Eos % (Auto) 4.0 % % (0.6-7.6) Baso % (Auto) 0.3 % % (0.3-1.7) Nucleat RBC Rel Count 0.0 % % (0.0-0.2) Absolute Neuts (auto) 6.37 10^3/uL 10^3/uL (1.70-6.50) Absolute Lymphs (auto) 2.67 10^3/uL 10^3/uL (1.00-3.00) Absolute Monos (auto) 0.52 10^3/uL 10^3/uL (0.30-0.80) Absolute Eos (auto) 0.40 10^3/uL 10^3/uL (0.03-0.40) Absolute Basos (auto) 0.03 10^3/uL 10^3/uL (0.02-0.10) Absolute Nucleated RBC 0.00 10^3/uL 10^3/uL (0-0.01) Immature Gran % 0.8 % % (0.0-1.1) Immature Gran # 0.08 10^3/uL 10^3/uL (0.00-0.10) VBG Lactic Acid Sodium Potassium Chloride Carbon Dioxide Anion Gap BUN Creatinine Estimated GFR Glucose Calcium Total Bilirubin Urine Color Urine Appearance Urine pH Ur Specific [place] Urine Protein Urine Ketones Urine Blood Urine Nitrate Urine Bilirubin Urine Urobilinogen Ur Leukocyte Esterase Urine Glucose Medications Given: Discontinued Medications Sodium Chloride (Ns) 1,000 mls @ 0 mls/hr IV EDNOW ONE; Wide Open PRN Reason: Protocol Stop: 10/05/18 09:13 Last Admin: 10/05/18 09:30 Dose: 1,000 mls Departure - Departure Disposition: Home, Routine, Self-Care Clinical Impression: Encounter for postoperative wound check Condition: Good Instructions: Acute Wounds (ED) Additional Instructions: Return with increasing pain, fever, vomiting or any other concerns. You need to call Dr. Mariscal to make an appointment this week. Follow up with Dr. Lujan for your other symptoms. Referrals: James Lujan MD [Primary Care Provider] - 2-3 days without fail Sina Mariscal MD [Medical Doctor] - 2-3 days, call for appt.
[2018-10-05 09:27] LABS: PLATELET COUNT 325 10^3/uL (150-400)
[2018-10-05 12:10] VITALS: BP 132/79
--- NOTE | 2018-10-05 15:02 | CPEKG ---
Test Reason : OPEN Blood Pressure : / mmHG Vent. Rate : 088 BPM Atrial Rate : 089 BPM P-R Int : 159 ms QRS Dur : 087 ms QT Int : 359 ms P-R-T Axes : 042 002 002 degrees QTc Int : 435 ms Sinus rhythm Inferior infarct, old Confirmed by Samantha Kruse ([id number]) on 10/05/2018 3:02:01 PM Referred By: Samantha Kruse Confirmed By:Samantha Kruse
== END 2018-10-05 12:44 | disposition home or self-care (01) ==
DX: Z47.1 Aftercare following joint replacement surgery (principal); Z96.641 Presence of right artificial hip joint